=== PATIENT | female | born 1955 | race Caucasian/White ===

== ENCOUNTER → 2016-06-16 | Outpatient (CLI) | payer MEDICARE, OTHER ==
[~2016-06-16] MED LIST: ALDACTONE25 MG PO; ASPIR 8181 MG PO; AZATHIOPRINE50 MG PO; BUSPAR 10MG10 MG PO; BUSPIRONE HCL10 MG PO; CATAPRES 0.1MG0.1 MG PO; COLACE 100MG C100 MG PO; DITROPAN XL10 MG PO; DRISDOL50000 UNIT PO; EFFEXOR XR75 MG PO; ELIQUIS5 MG PO; FISH OIL 1,0001 EAC4 PO; FISH OIL 1,0001 EACH PO; FLONASE 0.05% N16 GM; FLONASE ALLER15.8 ML; GLUCOPHAGE1000 MG PO; GLUCOPHAGE850 MG PO; HYDRALAZINE HC100 MG PO; HYDRALAZINE HCL50 MG PO; IMURAN TAB 50 M50 MG PO; ISOSORBIDE MON120 MG PO; LEVAQUIN750 MG PO; LEVEMIR FL100 UNIT/1 SQ; LEVEMIR100 UNIT/1 SC; LIPITOR TAB 2020 MG PO; LIPITOR80 MG PO; LISINOPRIL40 MG PO; LONITEN TAB 1010 MG PO; LOPRESSOR50 MG PO; MAGNESIUM500 MG PO; NEURONTIN 300300 MG PO; NEURONTIN 400400 MG PO; NOVOLOG 10100 UNITS1 INJ; NOVOLOG MI100 UNIT/1 SQ; OMEPRAZOLE20 M1 PO; OXYBUTYNIN CHLO10 MG PO; PERCOCET 10-321 EACH PO; PERCOCET 7.5-31 EACH PO; PRILOSEC20 MG PO; PROMETHAZINE HC25 M1 PO; SPIRONOLACTONE25 MG PO; VICTOZA 1818 MG/3 ML SC; VICTOZA 1818 MG/3 ML SQ; VITAMIN B-1000 MCG/M IM; VITAMIN B-1000 MCG/M INJ; VITAMIN D250000 UNIT PO; XARELTO10 MG PO; ZESTRIL40 MG PO
== END ==
LOC: MAMO 14:13
DX: Z12.31 Encounter for screening mammogram for malignant neoplasm of breast (principal)
CPT/HCPCS: G0202

== ENCOUNTER → 2016-07-16 | Outpatient (CLI) | payer MEDICARE, OTHER | LOC: KOH-I 08:27 | DX: H05.212 Displacement (lateral) of globe, left eye (principal); R93.8 Abnormal findings on diagnostic imaging of other specified body structures | CPT/HCPCS: 70480 ==

== ENCOUNTER → 2016-09-08 | Outpatient (CLI) | payer MEDICARE, OTHER ==
[2016-09-08 13:13] LABS: HEMOGLOBIN 11.8 gm/dl (12.3-15.3); RED BLOOD COUNT 3.44 M/UL (4.00-5.10)
[2016-09-08 13:28] LABS: BUN/CREATININE RATIO 23 (0-10)
== END ==
LOC: OPSV2 12:30
PROVIDERS: Orthopaedic Surgery
DX: Z01.810 Encounter for preprocedural cardiovascular examination (principal); Z01.812 Encounter for preprocedural laboratory examination; M17.12 Unilateral primary osteoarthritis, left knee; I10 Essential (primary) hypertension; E11.9 Type 2 diabetes mellitus without complications
CPT/HCPCS: 80048; 81001; 83036; 85025; 87081; 93005

== ENCOUNTER 2016-11-21 07:32 | Inpatient (IN) | payer MEDICARE, OTHER ==
[~2016-11-21] VITALS: Ht 165.1 cm; Wt 89.8 kg
[~2016-11-21 07:32] MED LIST changes: -AZATHIOPRINE50 MG PO; -BUSPIRONE HCL10 MG PO; -COLACE 100MG C100 MG PO; -ELIQUIS5 MG PO; -FISH OIL 1,0001 EAC4 PO; -FLONASE ALLER15.8 ML; -GLUCOPHAGE850 MG PO; -HYDRALAZINE HCL50 MG PO; -LEVEMIR FL100 UNIT/1 SQ; -LIPITOR TAB 2020 MG PO; -LISINOPRIL40 MG PO; -NEURONTIN 300300 MG PO; -NOVOLOG 10100 UNITS1 INJ; -OMEPRAZOLE20 M1 PO; -OXYBUTYNIN CHLO10 MG PO; -PERCOCET 10-321 EACH PO; -SPIRONOLACTONE25 MG PO; -VICTOZA 1818 MG/3 ML SC; -VITAMIN B-1000 MCG/M IM; -VITAMIN D250000 UNIT PO
[2016-11-21] MEDS ORDERED: CATAPRES 0.1MG0.1 MG PO (08:49)
[2016-11-21] MEDS ORDERED: HYDRALAZINE HCL50 MG PO (08:50)
[2016-11-21] MEDS ORDERED: BUSPIRONE HCL10 MG PO (08:50)
[2016-11-21] MEDS ORDERED: LEVEMIR FL100 UNIT/1 SQ (08:52)
[2016-11-21] MEDS ORDERED: NOVOLOG 10100 UNITS1 INJ (08:53)
[2016-11-21] MEDS ORDERED: GLUCOPHAGE850 MG PO (08:53)
[2016-11-21] MEDS ORDERED: VITAMIN D250000 UNIT PO (08:54)
[2016-11-21] MEDS ORDERED: VITAMIN B-1000 MCG/M IM (08:54)
[2016-11-21] MEDS ORDERED: FISH OIL 1,0001 EAC4 PO (08:55)
[2016-11-21] MEDS ORDERED: ASPIR 8181 MG PO (08:55)
[2016-11-21] MEDS ORDERED: OMEPRAZOLE20 M1 PO (08:56)
[2016-11-21] MEDS ORDERED: PROMETHAZINE HC25 M1 PO (08:56)
[2016-11-21] MEDS ORDERED: SPIRONOLACTONE25 MG PO (08:57)
[2016-11-21] MEDS ORDERED: EFFEXOR XR75 MG PO (08:57)
[2016-11-21] MEDS ORDERED: LOPRESSOR50 MG PO (08:58)
[2016-11-21] MEDS ORDERED: LISINOPRIL40 MG PO (08:58)
[2016-11-21] MEDS ORDERED: ISOSORBIDE MON120 MG PO (08:58)
[2016-11-21] MEDS ORDERED: NEURONTIN 300300 MG PO (08:59)
[2016-11-21] MEDS ORDERED: FLONASE ALLER15.8 ML (08:59)
[2016-11-21] MEDS ORDERED: LIPITOR TAB 2020 MG PO (09:00)
[2016-11-21] MEDS ORDERED: AZATHIOPRINE50 MG PO (09:00)
[2016-11-21] MEDS ORDERED: PERCOCET 7.5-31 EACH PO (09:01)
[2016-11-21] MEDS ORDERED: OXYBUTYNIN CHLO10 MG PO (09:02)
[2016-11-22 05:15] LABS: HEMOGLOBIN 8.9 gm/dl (12.3-15.3); RED BLOOD COUNT 2.53 M/UL (4.00-5.10); WHITE BLOOD COUNT 4.1 K/UL (4.5-11.0)
[2016-11-22 05:32] LABS: BUN/CREATININE RATIO 17 (0-10)
[2016-11-23 04:49] LABS: RED BLOOD COUNT 2.54 M/UL (4.00-5.10); WHITE BLOOD COUNT 4.7 K/UL (4.5-11.0)
[2016-11-23 05:06] LABS: BUN/CREATININE RATIO 13 (0-10)
[2016-11-24 05:01] LABS: HEMOGLOBIN 8.6 gm/dl (12.3-15.3); RED BLOOD COUNT 2.43 M/UL (4.00-5.10); WHITE BLOOD COUNT 3.6 K/UL (4.5-11.0)
[2016-11-24 05:16] LABS: BUN/CREATININE RATIO 14 (0-10)
[2016-11-24] MEDS ORDERED: VICTOZA 1818 MG/3 ML SC (08:51)
[2016-11-24] MEDS ORDERED: ELIQUIS5 MG PO (11:50)
[2016-11-24] MEDS ORDERED: PERCOCET 10-321 EACH PO (12:28)
[2016-11-24] MEDS ORDERED: COLACE 100MG C100 MG PO (16:15)
== END 2016-11-24 17:57 | disposition home health service (06) | DRG 470 ==
LOC: ZEROF 07:32 → M/S 14:34
PROVIDERS: Internal Medicine; ADMIT Orthopaedic Surgery
PROC: 3E0T3CZ (ICD-10-PCS; 2016-11-21)
PROC: 0SRD0J9 Replacement of Left Knee Joint with Synthetic Substitute, Cemented, Open Approach (ICD-10-PCS; principal; 2016-11-21 09:45)
DX: M17.12 Unilateral primary osteoarthritis, left knee (principal); D62 Acute posthemorrhagic anemia; I50.32 Chronic diastolic (congestive) heart failure; I11.0 Hypertensive heart disease with heart failure; M25.762 Osteophyte, left knee; I25.10 Atherosclerotic heart disease of native coronary artery without angina pectoris; E78.5 Hyperlipidemia, unspecified; E11.65 Type 2 diabetes mellitus with hyperglycemia; D69.6 Thrombocytopenia, unspecified; I27.2 Other secondary pulmonary hypertension; M06.9 Rheumatoid arthritis, unspecified; I08.1 Rheumatic disorders of both mitral and tricuspid valves; K21.9 Gastro-esophageal reflux disease without esophagitis; D75.89 Other specified diseases of blood and blood-forming organs; E53.8 Deficiency of other specified B group vitamins; E55.9 Vitamin D deficiency, unspecified; M79.7 Fibromyalgia; F43.23 Adjustment disorder with mixed anxiety and depressed mood; Z86.718 Personal history of other venous thrombosis and embolism; Z87.442 Personal history of urinary calculi; Z28.21 Immunization not carried out because of patient refusal; Z79.4 Long term (current) use of insulin; Z79.84 Long term (current) use of oral hypoglycemic drugs; Z79.82 Long term (current) use of aspirin; Z79.891 Long term (current) use of opiate analgesic; Z79.899 Other long term (current) drug therapy; Z88.3 Allergy status to other anti-infective agents; Z96.651 Presence of right artificial knee joint; Z90.710 Acquired absence of both cervix and uterus; Z90.49 Acquired absence of other specified parts of digestive tract; Z98.890 Other specified postprocedural states; Z98.42 Cataract extraction status, left eye; Z98.41 Cataract extraction status, right eye; Z82.49 Family history of ischemic heart disease and other diseases of the circulatory system
CPT/HCPCS: 36415; 73560; 80048; 80053; 82962; 83735; 85027; 97110; 97116; 97530; 97535; J1885; J2250; J2270; J2405; J2795; J3010; J3370; J3420; J7030; J7040; J7050; J7070; J7120; J7500; Q0163

== ENCOUNTER → 2020-08-22 | Outpatient (CLI) | payer MEDICARE, OTHER ==
[~2020-08-22] MED LIST changes: +ATORVASTATIN CA80 MG PO; +AZATHIOPRINE50 MG PO; +BUSPIRONE HCL10 MG PO; +COLACE 100MG C100 MG PO; +ELIQUIS5 MG PO; +ENDOCET 7.5-321 EACH PO; +FISH OIL 1,0001 EAC4 PO; +FLONASE ALLER15.8 ML; +GABAPENTIN400 MG PO; +GLUCOPHAGE850 MG PO; +HYDRALAZINE HCL50 MG PO; +IBU800 MG PO; +IMURAN50 MG PO; +JARDIANCE10 MG PO; +LEVEMIR FL100 UNIT/1 SQ; +LEXAPRO TAB 1010 MG PO; +LIPITOR TAB 2020 MG PO; +LISINOPRIL10 MG PO; +LISINOPRIL40 MG PO; +METFORMIN HCL1000 MG PO; +MOVANTIK25 MG PO; +NEURONTIN 300300 MG PO; +NOVOLOG 10100 UNITS1 INJ; +NOVOLOG FL100 UNIT/1 SQ; +OMEPRAZOLE20 M1 PO; +ONDANSETRON HCL8 MG PO; +OXYBUTYNIN CHLO10 MG PO; +PERCOCET 10-321 EACH PO; +PROTONIX 40 MG40 M1 PO; +SPIRONOLACTONE25 MG PO; +TERBINAFINE HC250 MG PO; +VICTOZA 1818 MG/3 ML SC; +VITAMIN B-1000 MCG/M IM; +VITAMIN D250000 UNIT PO
[2020-08-22 12:12] LABS: HEMOGLOBIN 11.8 gm/dl (12.3-15.3); RED BLOOD COUNT 3.11 M/UL (4.00-5.10); WHITE BLOOD COUNT 5.1 K/UL (4.5-11.0)
[2020-08-22 12:21] LABS: BUN/CREATININE RATIO 23 (0-10)
== END ==
LOC: OPSV2 11:00
PROVIDERS: Orthopaedic Surgery
DX: Z01.818 Encounter for other preprocedural examination (principal); M75.101 Unspecified rotator cuff tear or rupture of right shoulder, not specified as traumatic; R91.8 Other nonspecific abnormal finding of lung field
CPT/HCPCS: 36415; 71046; 80048; 85027; 93005

== ENCOUNTER → 2020-08-31 | Day surgery (SDC) | payer MEDICARE, OTHER ==
[~2020-08-31] VITALS: Ht 165.1 cm; Wt 108.4 kg
== END | disposition home or self-care (01) ==
LOC: OR 05:55
DX: M75.121 Complete rotator cuff tear or rupture of right shoulder, not specified as traumatic (principal); M75.51 Bursitis of right shoulder; M75.41 Impingement syndrome of right shoulder; M65.811 Other synovitis and tenosynovitis, right shoulder; M94.211 Chondromalacia, right shoulder; S43.431A Superior glenoid labrum lesion of right shoulder, initial encounter; E11.9 Type 2 diabetes mellitus without complications; I10 Essential (primary) hypertension; Z79.4 Long term (current) use of insulin; M79.7 Fibromyalgia; Z88.1 Allergy status to other antibiotic agents; Z96.651 Presence of right artificial knee joint; G43.909 Migraine, unspecified, not intractable, without status migrainosus; G89.29 Other chronic pain; E66.01 Morbid (severe) obesity due to excess calories; Z86.718 Personal history of other venous thrombosis and embolism; Z86.73 Personal history of transient ischemic attack (TIA), and cerebral infarction without residual deficits; Z68.39 Body mass index [BMI] 39.0-39.9, adult
CPT/HCPCS: 82962; C1713; J0171; J1100; J2001; J2250; J2405; J2704; J2710; J2765; J2795; J3010; J7030; J7120